=== PATIENT | male | born 1980 | race Caucasian/White ===

== ENCOUNTER 2016-05-19 22:51 | Emergency (ER) | payer MEDICAID ==
[~2016-05-19] VITALS: Ht 165.1 cm; Wt 93.5 kg
[2016-05-19 22:55] VITALS: Ht 165.1 cm; Wt 93.5 kg
[2016-05-20 01:58] LABS: BASOPHILS % 0.5 % (0.0-2.0); EOSINOPHILS # 0.1 10^3/ul (0.0-0.5); HEMATOCRIT 43.6 % (42.0-52.0); HEMOGLOBIN 14.5 g/dl (14.0-18.0); LYMPHOCYTES # 3.3 10^3/ul (0.8-2.9); LYMPHOCYTES % 33.4 % (15.0-51.0); MEAN CORPUSCULAR HEMOGLOBIN 27.6 pg (29.0-33.0); MEAN CORPUSCULAR HGB CONC 33.3 g/dl (32.0-37.0); MEAN CORPUSCULAR VOLUME 83.1 fl (82.0-101.0); MONOCYTE # 0.7 10^3/ul (0.3-0.9); MONOCYTES % 7.4 % (0.0-11.0); NEUTROPHIL # 5.6 10^3/ul (1.6-7.5); NEUTROPHILS % 57.7 % (39.0-77.0); PLATELET COUNT 274 10^3/UL (140-440); RED BLOOD COUNT 5.25 10^6/ul (4.70-6.10); RED CELL DISTRIBUTION WIDTH 14.9 % (11.5-14.5); UNCORRECTED WBC 9.8 10^3/ul (4.8-10.8); WHITE BLOOD COUNT 9.8 10^3/ul (4.8-10.8)
[2016-05-20 01:59] LABS: CONDITION 1; LH ANALYZER COMMENTS 1
[2016-05-20 02:00] LABS: ADD UMIC YES; URINE BILIRUBIN (Dip) NEGATIVE (NEGATIVE); URINE BLOOD (Dip) TRACE (NEGATIVE); URINE COLOR LT. YELLOW (YELLOW); URINE GLUCOSE (Dip) NEGATIVE (NEGATIVE); URINE KETONES (Dip) NEGATIVE (NEGATIVE); URINE LEUKOCYTE ESTERASE (Dip) TRACE (NEGATIVE); URINE NITRITE (Dip) NEGATIVE (NEGATIVE); URINE TOTAL PROTEIN (Dip) NEGATIVE (NEGATIVE); URINE UROBILINOGEN (Dip) 0.2 E.U./dL (0.1-1.0)
[2016-05-20 02:07] LABS: URINE RBCS 0-2 /HPF (0)
[2016-05-20 02:16] LABS: ALBUMIN 4.5 g/dl (3.3-4.9)
[2016-05-20 02:17] LABS: POTASSIUM 4.3 mmol/L (3.5-5.1)
[2016-05-20 02:19] LABS: ALBUMIN/GLOBULIN RATIO 1.18; BILIRUBIN,INDIRECT 0.3 mg/dl (0-1.1); BILIRUBIN,TOTAL 0.3 mg/dl (0.2-1.3); CREATININE 0.82 mg/dl (0.61-1.24); TOTAL PROTEIN 8.3 g/dl (6.1-8.1)
[2016-05-20 02:20] LABS: CALCIUM 9.6 mg/dl (8.4-10.2)
--- NOTE | 2016-05-20 02:43 | RADRPT ---
PROCEDURE: CT abdomen and pelvis without intravenous contrast. CLINICAL INDICATION: Pain. TECHNIQUE: CT of the abdomen/pelvis was performed utilizing axial images with reconstructions in s agittal and coronal planes. The administered radiation dose is CTDI 16.7 mGy, DLP 1088 mGy-cm. COMPARISON: 10/01/2015 FINDINGS: Visualized Chest: The visualized lung bases are clear. Abdomen: The spleen, pancreas, gallbladder,and adrenal glands are unremarkable. The liver is diffusely dec reased in attenuation, compatible with hepatic steatosis. The kidneys are without hydronephrosis. No definite urinary calculi are seen. There is no evidence of bowel obstruction. Prior appendectomy is noted. No intra-abdominal free air is seen. There is no evidence of intra-abdominal adenopathy or free fluid. Pelvis: There is no evidence of pelvic adenopathy of free fluid. The prostate and bladder are unremarkable. Osseous structures: Unremarkable. IMPRESSION: No acute findings. Hepatic steatosis. RPTAT: HIKT .Joseph Montenegro MD, MD Date Time Electronically viewed and signed by .Joseph Montenegro MD, on 05/20/2016 02:43 .T/
[2016-05-20] MEDS ORDERED: DICY10CA60 PO (02:52)
[2016-05-20 03:06] VITALS: BP 142/89; PULSE 82; RESP 17
--- NOTE | 2016-05-20 05:27 | ERD ---
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 Per patient he had one episode of bloody stools. Blood was bright red and was also on the toilet paper. Patient denies any nausea vomiting or diarrhea. He denies any fevers or chills. ROS 12 point review of systems was done, all negative except per HPI. Medications Home Meds Active Scripts Dicyclomine Hcl* (Bentyl*) 10 Mg Capsule, 10 MG PO QID for 5 Days, CAP Prov:SALTY MATHIAS Rodolfo 05/20/16 Allergies Allergies: Coded Allergies: No Known Allergy (Unverified , 10/01/15) PMhx/Soc Medical and Surgical Hx: pt denies Medical Hx History of Surgery: No Anesthesia Reaction: No Hx Neurological Disorder: No Hx Respiratory Disorders: No Hx Cardiac Disorders: No Hx Psychiatric Problems: No Hx Miscellaneous Medical Probl: Yes (APPY SX AT [facility]) Hx Alcohol Use: Yes (Social drinker) Hx Substance Use: No Hx Tobacco Use: Yes (once a month) Smoking Status: Current every day smoker Physical Exam Vitals Vital Signs Date Time Temp Pulse Resp B/P Pulse Ox O2 Delivery O2 Flow Rate FiO2 05/20/16 03:06 82 17 142/89 97 Room Air 05/19/16 22:55 98.2 90 18 149/73 98 Physical Exam GENERAL: The patient is well developed and appropriate for usual state of health , in no apparent distress. HEENT: Atraumatic. CHEST: Clear to auscultation bilaterally. There are no rales, wheezes or rhonchi. HEART: Regular rate and rhythm. No murmurs, clicks, rubs or gallops. ABDOMEN: Soft, tender to palpation in the left lower. Good bowel sounds. No rebound or guarding. No gross peritonitis. No gross organomegaly or masses. No Patterson sign or McBurney point tenderness. BACK: No midline or flank tenderness. NEURO: Alert and oriented. SKIN: The skin is warm and dry. Result Diagram: 05/20/16 0123 05/20/16 0123 Results 24 hrs Laboratory Tests Test 05/20/16 01:23 Alanine Aminotransferase (ALT/SGPT) 32IU/L Albumin 4.5g/dl Albumin/Globulin Ratio 1.18 Alkaline Phosphatase 94IU/L Anion Gap 16 Aspartate Amino Transf (AST/SGOT) 24IU/L Basophils # 0.010^3/ul Basophils % 0.5% Blood Morphology Comment Blood Urea Nitrogen 14mg/dl Calcium Level 9.6mg/dl Carbon Dioxide Level 30mmol/L Chloride Level 103mmol/L Creatinine 0.82mg/dl Direct Bilirubin 0.00mg/dl Eosinophils # 0.110^3/ul Eosinophils % 1.0% Globulin 3.80g/dl Glucose Level 102mg/dl Hematocrit 43.6% Hemoglobin 14.5g/dl Indirect Bilirubin 0.3mg/dl Lipase 23U/L Lymphocytes # 3.310^3/ul Lymphocytes % 33.4% Mean Corpuscular Hemoglobin 27.6pg Mean Corpuscular Hemoglobin Concent 33.3g/dl Mean Corpuscular Volume 83.1fl Mean Platelet Volume 7.0fl Monocytes # 0.710^3/ul Monocytes % 7.4% Neutrophils # 5.610^3/ul Neutrophils % 57.7% Nucleated Red Blood Cells # 0.010^3/ul Nucleated Red Blood Cells % 0.0/100WBC Platelet Count 30502^3/UL Potassium Level 4.3mmol/L Red Blood Count 5.2510^6/ul Red Cell Distribution Width 14.9% Sodium Level 145mmol/L Total Bilirubin 0.3mg/dl Total Protein 8.3g/dl Urine Bilirubin NEGATIVE Urine Clarity CLEAR Urine Color LT. YELLOW Urine Glucose NEGATIVE% Urine Hemoglobin TRACE Urine Ketones NEGATIVE Urine Leukocyte Esterase TRACE Urine Microscopic RBC 0-2/HPF Urine Microscopic WBC 0-2/HPF Urine Nitrite NEGATIVE Urine Specific Castella 1.015 Urine Total Protein NEGATIVE Urine Urobilinogen 0.2 E.U./dL Urine pH 7.0 White Blood Count 9.810^3/ul Procedures/MDM Differential diagnosis includes but is not limited to appendicitis, hernia, testicular torsion, UTI, constipation, diverticulitis, colitis, IBS, Crohn's disease. This is a 35-year-old male presents to the ER with lower abdominal pain. At this time there is no evidence of acute abdomen. Patient's physical examination is benign. Patient is hemodynamically stable with no signs or symptoms of anemia. Patient will be sent home with Bentyl. He is to follow-up with his primary care doctor within 1-2 days return to ER sooner if symptoms worsen. Plan was discussed with the patient understands and agrees with plan. Departure Diagnosis: Primary Impression: Abdominal pain Condition: Stable Patient Instructions: Abdominal Pain Additional Instructions: Llame al doctor MAANA y allen esthela SU PARA DENTRO DE 1-2 EDWARDS.Dgale a la secretaria que nosotros le instruimos hacer esta su.Avise o llame si jacobo condicin se empeora antes de la su. Regresa aqui si peor o no mejor. SALTY MATHIAS May 20, 2016 05:27
== END 2016-05-20 03:07 | disposition home or self-care (01) ==
LOC: FTE 22:51
DX: R10.32 Left lower quadrant pain (principal); F17.210 Nicotine dependence, cigarettes, uncomplicated
CPT/HCPCS: 36415; 74176; 80053; 81001; 83690; 85025; Z7502; 81003

== ENCOUNTER 2017-07-06 11:37 | Emergency (ER) | END 2017-07-06 16:16 | disposition home or self-care (01) ==